=== PATIENT | female | born 1985 | race Caucasian/White ===

== ENCOUNTER 2019-10-26 18:09 | Emergency (ER) | payer MEDICAID ==
[~2019-10-26] VITALS: Ht 152.4 cm; Wt 65.0 kg
[2019-10-26 21:08] VITALS: BP 128/83
== END 2019-10-26 21:04 | disposition home or self-care (01) ==
LOC: ER 18:10
DX: S63.693A Other sprain of left middle finger, initial encounter (principal); X58.XXXA Exposure to other specified factors, initial encounter; Y93.89 Activity, other specified; Y92.89 Other specified places as the place of occurrence of the external cause; Y99.8 Other external cause status
CPT/HCPCS: 73140; 99283

== ENCOUNTER 2020-07-05 10:32 | Inpatient (IN) | payer MEDICAID ==
[~2020-07-05] VITALS: Ht 152.4 cm; Wt 65.0 kg
[2020-07-05] MEDS ORDERED: iohexol 350MG/ML 100ml bottle IV ONE (11:05)
[2020-07-05] MEDS ORDERED: SUMAtriptan succ. 6 MG/0.5ml vial SQ ONE (12:30)
[2020-07-05] MEDS ORDERED: diphenhydrAMINE 50 mg/ml inj IV ONE ×2 (12:30→23:10)
[2020-07-05] MEDS ORDERED: proCHLORperazine 10 MG/2 ml inj IV PRN (12:30)
[2020-07-05] MEDS ORDERED: ketorolac trometh. 30mg/ml inj. IV ONE (12:30)
[2020-07-05] MEDS ORDERED: morphine 4 MG/ML inj SYRINge IV ONE (13:10)
--- NOTE | 2020-07-05 13:23 | NUR ---
mri form faxed to [facility]ri
[2020-07-05 13:46] LABS: CLARITY,URINE SLIGHTLY CLOUDY (Clear); COLOR,URINE STRAW (Yellow); GLUCOSE, URINE NEGATIVE (Neg); KETONES,URINE NEGATIVE (Neg); LEUKOCYTE ESTERASE ,URINE NEGATIVE (Neg); NITRITES, URINE NEGATIVE (Neg); OCCULT BLOOD,URINE SMALL (Neg); PH,URINE 7.5 (4.8-8.0); PROTEIN,URINE NEGATIVE (Neg); UROBILINOGEN,URINE 0.2 E.U/dL (0.2-1.0)
[2020-07-05 13:47] LABS: UA COLLECTION TYPE CLN CATCH MIDSTREAM
[2020-07-05 13:54] LABS: URINE AMPHETAMINE SCREEN NEGATIVE (Neg); URINE BARBITUATE SCREEN NEGATIVE (Neg); URINE BENZODIAZEPINES SCREEN NEGATIVE (Neg); URINE CANNABINOID SCREEN NEGATIVE (Neg); URINE COCAINE SCREEN NEGATIVE (Neg); URINE METHADONE SCREEN NEGATIVE (Neg); URINE OPIATE SCREEN NEGATIVE (Neg); URINE PHENCYCLIDINE SCREEN NEGATIVE (Neg)
[2020-07-05 13:56] LABS: SQUAMOUS EPITHELIAL CELL,UR FEW /LPF (FEW)
[2020-07-05 13:57] LABS: BACTERIA,URINE FEW /HPF (Neg); RBC,URINE 0-2 /HPF (0-2); WBC,URINE 0-4 /HPF (0-4)
[2020-07-05 14:40] LABS: BASOPHILS % (AUTO) 0.6 % (0-1); EOSINOPHILS # (AUTO) 0.1 X10'3 (0-0.9); EOSINOPHILS % (AUTO) 2.2 % (0-6); HEMATOCRIT 41.7 % (35.0-45.0); LYMPHOCYTES # (AUTO) 1.6 X10'3 (1.1-4.8); LYMPHOCYTES % (AUTO) 28.9 % (21-51); MEAN CORPUSCULAR HEMOGLOBIN 30.2 PG (27.0-31.0); MEAN CORPUSCULAR HGB CONC 33.7 g/dL (33.0-36.5); MEAN CORPUSCULAR VOLUME 89.7 FL (78-98); MEAN PLATELET VOLUME 7.3 FL (7.4-10.4); MONOCYTES # (AUTO) 0.3 X10'3 (0-0.9); MONOCYTES % (AUTO) 5.4 % (2-12); NEUTROPHILS # (AUTO) 3.6 X10'3 (1.8-7.7); NEUTROPHILS % (AUTO) 62.9 % (42-75); PLATELET COUNT 336 X10'3 (140-440); RED BLOOD COUNT 4.65 X10'6 (4.20-5.60); RED CELL DISTRIBUTION WIDTH 13.3 % (11.5-14.5); WHITE BLOOD COUNT 5.7 X10'3 (4.5-11.0)
[2020-07-05 14:48] LABS: PARTIAL THROMBOPLASTIN TIME 30 SECONDS (22-32)
[2020-07-05 14:50] LABS: ALANINE AMINOTRANSFERASE 65 U/L (12-78); ALKALINE PHOSPHATASE 114 IU/L (46-116); ANION GAP 7 (8-16); ASPARTATE AMINO TRANSFERASE 28 U/L (10-37); BILIRUBIN,TOTAL 0.4 MG/DL (0.1-1.0); BLOOD UREA NITROGEN 8 MG/DL (7-18); BUN/CREATININE RATIO 11.1 (6.6-38.0); CALCIUM 8.7 MG/DL (8.5-10.1); CHLORIDE 103 MMOL/L (99-107); CREATININE 0.72 MG/DL (0.40-0.90); GLUCOSE 87 MG/DL (70-104); POTASSIUM 3.9 MMOL/L (3.5-5.1); SODIUM 136 MMOL/L (135-145); TOTAL CARBON DIOXIDE 25.6 MMOL/L (24-32); eGFR > 90 ML/MIN
[2020-07-05] MEDS ORDERED: NO HOME MEDS (15:34)
[2020-07-05] MEDS ORDERED: magnesium Cl slow-release 64mg tablet PO PRN (15:55)
[2020-07-05] MEDS ORDERED: magnesium 4gm in 100ml NS 100 ML IV PRN (15:55)
[2020-07-05] MEDS ORDERED: HYDROcodone/acetaminophen 10/325mg tab PO PRN (15:55)
[2020-07-05] MEDS ORDERED: magnesium 2GM in 50ml NS 50 ML IV PRN (15:55)
[2020-07-05] MEDS ORDERED: mag hydrox/Alum hydrox/simeth 30ml oral suspension PO PRN (15:55)
[2020-07-05] MEDS ORDERED: bisacodyl 10mg suppository rectal RC PRN (15:55)
[2020-07-05] MEDS ORDERED: morphine 2 MG/ML inj. syringe IV PRN ×2 (15:55)
[2020-07-05] MEDS ORDERED: diphenhydrAMINE 25mg capsule PO PRN (15:55)
[2020-07-05] MEDS ORDERED: potassium Cl 20 mEq SR tablet PO PRN ×2 (15:55)
[2020-07-05] MEDS ORDERED: magnesium hydroxide 30ml (MOM) UD suspension PO PRN (15:55)
[2020-07-05] MEDS ORDERED: acetaminophen 325mg tablet PO PRN ×2 (15:55)
[2020-07-05] MEDS ORDERED: potassium CL 10mEq/100ml bag 100 ML IV PRN ×2 (15:55)
[2020-07-05] MEDS ORDERED: HYDROcodone/acetaminophen 5mg/325mg tablet PO PRN (15:55)
[2020-07-05] MEDS ORDERED: ondansetron/PF 4mg/2ml inj IV PRN (15:55)
[2020-07-05] MEDS ORDERED: acetaminophen 650mg rectal suppository RC PRN (15:55)
[2020-07-05] MEDS ORDERED: atorvastatin 10mg tablet PO SCH (15:55)
[2020-07-05] MEDS ORDERED: aspirin 81mg tab.chew PO ONE (16:10)
[2020-07-05] MEDS ORDERED: GADOTERATE MEGLUMINE 7.5 MMOL/15 ML VIAL IV ONE (16:46)
[2020-07-05 16:56] LABS: HCG SERUM QL NEGATIVE
[2020-07-05 17:02] LABS: CHOL/HDL RATIO 4.7 (0.00-4.99); CHOLESTEROL 200 MG/DL (0-200); HDL CHOLESTEROL 43 MG/DL (35-60); LDL CHOLESTEROL 113 MG/DL (50-100); TRIGLYCERIDES 198 MG/DL (20-135)
[2020-07-05] MEDS: normal saline 1000ml 1,000 ML IV SCH (17:02)
[2020-07-05] MEDS: atorvastatin 20mg tablet PO SCH (17:03)
[2020-07-05 17:40] LABS: CLARITY,URINE CLEAR (Clear); COLOR,URINE YELLOW (Yellow); GLUCOSE, URINE NEGATIVE (Neg); KETONES,URINE 15 mg/dl (Neg); LEUKOCYTE ESTERASE ,URINE NEGATIVE (Neg); NITRITES, URINE NEGATIVE (Neg); OCCULT BLOOD,URINE SMALL (Neg); PROTEIN,URINE NEGATIVE (Neg); UROBILINOGEN,URINE 0.2 E.U/dL (0.2-1.0)
[2020-07-05 17:45] LABS: UA COLLECTION TYPE CLN CATCH MIDSTREAM
[2020-07-05 17:48] LABS: HEMOGLOBIN A1C 5.7 % (4.5-6.2)
[2020-07-05 18:06] LABS: SQUAMOUS EPITHELIAL CELL,UR FEW /LPF (FEW)
[2020-07-05 18:07] LABS: BACTERIA,URINE FEW /HPF (Neg); RBC,URINE 0-2 /HPF (0-2); WBC,URINE 0-4 /HPF (0-4)
[2020-07-05] MEDS: K and/or MAG REPLACEMENT MC SCH (20:00)
[2020-07-05 20:15] VITALS: BP 118/81
[2020-07-05] MEDS: heparin, porcine 5000 units/ml vial SQ SCH (21:02)
[2020-07-05 22:00] VITALS: BP 127/85
[2020-07-05] MEDS ORDERED: LORazepam 2 mg/ml vial IV PRN (23:10)
--- NOTE | 2020-07-05 23:10 | NUR ---
MESSAGE: [id number] AMY SEN 35 HERE FOR POS STROKE/MASS IS ANXIOUS AND REQUESTING SLEEPING AID. THANK YOU. FROM [id number] FREDDIE
[2020-07-06 02:00] VITALS: BP 109/70
[2020-07-06] MEDS: normal saline 1000ml 1,000 ML IV SCH ×2 (04:36→11:55)
[2020-07-06 06:00] VITALS: BP 106/68
[2020-07-06 06:36] LABS: BASOPHILS % (AUTO) 0.6 % (0-1); EOSINOPHILS # (AUTO) 0.2 X10'3 (0-0.9); EOSINOPHILS % (AUTO) 3.1 % (0-6); HEMATOCRIT 38.8 % (35.0-45.0); HEMOGLOBIN 12.7 g/dl (12.0-16.0); LYMPHOCYTES # (AUTO) 2.6 X10'3 (1.1-4.8); LYMPHOCYTES % (AUTO) 42.1 % (21-51); MEAN CORPUSCULAR HEMOGLOBIN 29.5 PG (27.0-31.0); MEAN CORPUSCULAR HGB CONC 32.8 g/dL (33.0-36.5); MEAN CORPUSCULAR VOLUME 89.9 FL (78-98); MEAN PLATELET VOLUME 7.3 FL (7.4-10.4); MONOCYTES # (AUTO) 0.5 X10'3 (0-0.9); MONOCYTES % (AUTO) 7.6 % (2-12); NEUTROPHILS # (AUTO) 2.9 X10'3 (1.8-7.7); NEUTROPHILS % (AUTO) 46.6 % (42-75); PLATELET COUNT 323 X10'3 (140-440); RED BLOOD COUNT 4.31 X10'6 (4.20-5.60); RED CELL DISTRIBUTION WIDTH 13.5 % (11.5-14.5); WHITE BLOOD COUNT 6.1 X10'3 (4.5-11.0)
--- NOTE | 2020-07-06 06:41 | NUR ---
Problems reprioritized. Patient report given, questions answered & plan of care reviewed with SHAR JEAN.
--- NOTE | 2020-07-06 06:43 | NUR ---
Patient in room ORTHO 4008. I have received report from Marisela and had the opportunity to ask questions and assume patient care.
[2020-07-06 06:58] LABS: ALANINE AMINOTRANSFERASE 58 U/L (12-78); ALBUMIN 3.4 G/DL (3.4-5.0); ALKALINE PHOSPHATASE 98 IU/L (46-116); ANION GAP 5 (8-16); ASPARTATE AMINO TRANSFERASE 30 U/L (10-37); BILIRUBIN,TOTAL 0.3 MG/DL (0.1-1.0); BLOOD UREA NITROGEN 14 MG/DL (7-18); BUN/CREATININE RATIO 21.2 (6.6-38.0); CALCIUM 8.4 MG/DL (8.5-10.1); CHLORIDE 107 MMOL/L (99-107); CHOL/HDL RATIO 4.7 (0.00-4.99); CHOLESTEROL 166 MG/DL (0-200); CREATININE 0.66 MG/DL (0.40-0.90); GLUCOSE 86 MG/DL (70-104); HDL CHOLESTEROL 35 MG/DL (35-60); LDL CHOLESTEROL 97 MG/DL (50-100); MAGNESIUM 2.2 MG/DL (1.5-2.4); PHOSPHORUS 4.6 MG/DL (2.3-4.5); POTASSIUM 3.8 MMOL/L (3.5-5.1); SODIUM 140 MMOL/L (135-145); TOTAL CARBON DIOXIDE 27.8 MMOL/L (24-32); TOTAL PROTEIN 6.9 G/DL (6.4-8.2); TRIGLYCERIDES 201 MG/DL (20-135); eGFR > 90 ML/MIN
[2020-07-06] MEDS: K and/or MAG REPLACEMENT MC SCH (07:16)
[2020-07-06] MEDS ORDERED: aspirin 81mg tablet.DR PO SCH (08:00)
[2020-07-06] MEDS: atorvastatin 20mg tablet PO SCH (08:21)
[2020-07-06] MEDS: heparin, porcine 5000 units/ml vial SQ SCH (08:21)
[2020-07-06 10:00] VITALS: BP 101/70
--- NOTE | 2020-07-06 13:01 | NUR ---
Jean [id number] Re: Penny Christianson Tele consult report and Carotids are complete.
[2020-07-06 14:03] VITALS: BP 112/74
--- NOTE | 2020-07-06 14:14 | NUR ---
PT reports pt questions regarding heart healthy diet while RD on the floor. Pt admit w/ r/o CVA and possible R thalamus mass per EMR. TG 201 on admit. Pt seen by RD for written/verbal heart healthy diet ed w/ RD contact information provided. Addendum: 07/06/20 at [address] Amended: Links added.
--- NOTE | 2020-07-06 15:34 | NUR ---
Jean [id number] Re: Penny Christianson Dr. from [facility] dictated MRI results but they got lost in transfer. His # [phone] to confirm results.
--- NOTE | 2020-07-06 17:07 | NUR ---
Jean [id number] Re: Penny Christianson MRI report is now in [facility].
[2020-07-06] MEDS ORDERED: RIZA10TA27 PO (17:11)
--- NOTE | 2020-07-06 17:48 | NUR ---
Safe DC. All personal items with patient. new prescriptions called into preferred pharmacy. Left hospital in personal vehicle with family.
== END 2020-07-06 17:40 | disposition home or self-care (01) | DRG 54 ==
LOC: ER 10:33 → ED HOLD 15:55 → ORTHO 4S 20:15
PROVIDERS: ADMIT Family Medicine; ATTEND Family Medicine
PROC: BW38YZZ Magnetic Resonance Imaging (MRI) of Head using Other Contrast (ICD-10-PCS; principal; 2020-07-06)
DX: G43.109 Migraine with aura, not intractable, without status migrainosus (principal); G93.0 Cerebral cysts; Z82.3 Family history of stroke; Z82.49 Family history of ischemic heart disease and other diseases of the circulatory system
CPT/HCPCS: 36415; 70496; 70544; 70551; 70552; 80053; 80061; 80305; 81001; 82948; 83036; 83735; 84100; 84703; 85025; 85610; 85651; 85730; 87081; 92508; 92616; 93306; 93880; 96372; 96374; 96375; 97161; 99285; A9575; G0378; J1200; J1644; J1885; J2270; J3030; J7030; Q9967

== ENCOUNTER 2020-10-15 17:07 | Emergency (ER) | payer MEDICAID ==
[~2020-10-15] VITALS: Ht 152.4 cm; Wt 67.7 kg
[~2020-10-15 17:07] MED LIST: RIZA10TA27 PO
[2020-10-15 20:04] LABS: BASOPHILS % (AUTO) 0.6 % (0-1); EOSINOPHILS # (AUTO) 0.3 X10'3 (0-0.9); EOSINOPHILS % (AUTO) 3.3 % (0-6); HEMATOCRIT 38.4 % (35.0-45.0); LYMPHOCYTES # (AUTO) 2.3 X10'3 (1.1-4.8); LYMPHOCYTES % (AUTO) 29.5 % (21-51); MEAN CORPUSCULAR HEMOGLOBIN 30.1 PG (27.0-31.0); MEAN CORPUSCULAR HGB CONC 33.7 g/dL (33.0-36.5); MEAN CORPUSCULAR VOLUME 89.2 FL (78-98); MEAN PLATELET VOLUME 7.3 FL (7.4-10.4); MONOCYTES # (AUTO) 0.6 X10'3 (0-0.9); MONOCYTES % (AUTO) 7.2 % (2-12); NEUTROPHILS # (AUTO) 4.7 X10'3 (1.8-7.7); NEUTROPHILS % (AUTO) 59.4 % (42-75); PLATELET COUNT 356 X10'3 (140-440); RED BLOOD COUNT 4.31 X10'6 (4.20-5.60); RED CELL DISTRIBUTION WIDTH 13.7 % (11.5-14.5); WHITE BLOOD COUNT 7.9 X10'3 (4.5-11.0)
[2020-10-15 20:13] LABS: URINE HCG NEGATIVE (NEG)
[2020-10-15 20:15] LABS: ALANINE AMINOTRANSFERASE 87 U/L (12-78); ALBUMIN 3.8 G/DL (3.4-5.0); ALKALINE PHOSPHATASE 122 IU/L (46-116); ANION GAP 5 (8-16); ASPARTATE AMINO TRANSFERASE 34 U/L (10-37); BILIRUBIN,TOTAL 0.2 MG/DL (0.1-1.0); BLOOD UREA NITROGEN 10 MG/DL (7-18); BUN/CREATININE RATIO 14.1 (6.6-38.0); CALCIUM 9.5 MG/DL (8.5-10.1); CHLORIDE 108 MMOL/L (99-107); CREATININE 0.71 MG/DL (0.40-0.90); GLUCOSE 110 MG/DL (70-104); LIPASE 144 U/L (73-393); POTASSIUM 3.7 MMOL/L (3.5-5.1); SODIUM 141 MMOL/L (135-145); TOTAL CARBON DIOXIDE 27.7 MMOL/L (24-32); TOTAL PROTEIN 7.6 G/DL (6.4-8.2); eGFR > 90 ML/MIN
[2020-10-15] MEDS ORDERED: acetaminophen 325mg tablet PO ONE (20:15)
[2020-10-15 20:21] LABS: CLARITY,URINE SLIGHTLY CLOUDY (Clear); COLOR,URINE YELLOW (Yellow); GLUCOSE, URINE NEGATIVE (Neg); KETONES,URINE NEGATIVE (Neg); LEUKOCYTE ESTERASE ,URINE NEGATIVE (Neg); NITRITES, URINE NEGATIVE (Neg); OCCULT BLOOD,URINE NEGATIVE (Neg); PROTEIN,URINE NEGATIVE (Neg); UROBILINOGEN,URINE 0.2 E.U/dL (0.2-1.0)
[2020-10-15 20:51] LABS: UA COLLECTION TYPE CLN CATCH MIDSTREAM
[2020-10-15 20:53] LABS: AMORPHOUS PHOSPHATES 2+; BACTERIA,URINE FEW /HPF (Neg); MUCUS STRANDS MODERATE /LPF (Neg); RBC,URINE 0-2 /HPF (0-2); SQUAMOUS EPITHELIAL CELL,UR MODERATE /LPF (FEW); WBC,URINE 0-4 /HPF (0-4)
[2020-10-15] MEDS ORDERED: PANT20TA18 PO (21:08)
[2020-10-15] MEDS ORDERED: BISA-78 PO (21:08)
[2020-10-15] MEDS ORDERED: ACET-812 PO (21:08)
[2020-10-15 21:14] VITALS: BP 122/86
== END 2020-10-15 21:15 | disposition home or self-care (01) ==
LOC: ER 17:08
DX: R10.12 Left upper quadrant pain (principal); K59.00 Constipation, unspecified; R50.9 Fever, unspecified; G43.909 Migraine, unspecified, not intractable, without status migrainosus; Z79.899 Other long term (current) drug therapy
CPT/HCPCS: 36415; 80053; 81001; 81025; 83690; 85025; 99283

== ENCOUNTER 2021-01-19 13:53 | Emergency (ER) | payer MEDICAID ==
[~2021-01-19] VITALS: Ht 152.4 cm; Wt 63.6 kg
[~2021-01-19 13:53] MED LIST changes: +ACET-812 PO; +BISA-78 PO; +PANT20TA18 PO
[2021-01-19 14:31] LABS: BASOPHILS % (AUTO) 0.5 % (0-1); EOSINOPHILS # (AUTO) 0.2 X10'3 (0-0.9); EOSINOPHILS % (AUTO) 2.5 % (0-6); HEMATOCRIT 41.9 % (35.0-45.0); HEMOGLOBIN 13.8 g/dl (12.0-16.0); LYMPHOCYTES # (AUTO) 1.8 X10'3 (1.1-4.8); LYMPHOCYTES % (AUTO) 24.4 % (21-51); MEAN CORPUSCULAR HEMOGLOBIN 29.3 PG (27.0-31.0); MEAN CORPUSCULAR VOLUME 88.8 FL (78-98); MONOCYTES # (AUTO) 0.5 X10'3 (0-0.9); MONOCYTES % (AUTO) 6.3 % (2-12); NEUTROPHILS % (AUTO) 66.3 % (42-75); PLATELET COUNT 344 X10'3 (140-440); RED BLOOD COUNT 4.72 X10'6 (4.20-5.60); RED CELL DISTRIBUTION WIDTH 13.3 % (11.5-14.5); WHITE BLOOD COUNT 7.5 X10'3 (4.5-11.0)
[2021-01-19 14:46] LABS: ALANINE AMINOTRANSFERASE 125 U/L (12-78); ALBUMIN 4.3 G/DL (3.4-5.0); ALBUMIN/GLOBULIN RATIO 1.2 (1.1-1.5); ALKALINE PHOSPHATASE 142 IU/L (46-116); ANION GAP 7 (8-16); ASPARTATE AMINO TRANSFERASE 46 U/L (10-37); BILIRUBIN,TOTAL 0.3 MG/DL (0.1-1.0); BLOOD UREA NITROGEN 13 MG/DL (7-18); BUN/CREATININE RATIO 18.3 (6.6-38.0); CALCIUM 9.2 MG/DL (8.5-10.1); CHLORIDE 104 MMOL/L (99-107); CREATININE 0.71 MG/DL (0.40-0.90); GLUCOSE 100 MG/DL (70-104); POTASSIUM 4.2 MMOL/L (3.5-5.1); SODIUM 138 MMOL/L (135-145); TOTAL CARBON DIOXIDE 26.8 MMOL/L (24-32); TOTAL PROTEIN 7.9 G/DL (6.4-8.2); eGFR > 90 ML/MIN
[2021-01-19 14:52] LABS: HCG SERUM QL NEGATIVE
[2021-01-19 18:16] LABS: CLARITY,URINE SLIGHTLY CLOUDY (Clear); COLOR,URINE STRAW (Yellow); GLUCOSE, URINE NEGATIVE (Neg); KETONES,URINE NEGATIVE (Neg); LEUKOCYTE ESTERASE ,URINE NEGATIVE (Neg); NITRITES, URINE NEGATIVE (Neg); OCCULT BLOOD,URINE NEGATIVE (Neg); PROTEIN,URINE NEGATIVE (Neg); URINE HCG NEGATIVE (NEG); UROBILINOGEN,URINE 0.2 E.U/dL (0.2-1.0)
[2021-01-19 18:18] LABS: UA COLLECTION TYPE CLN CATCH MIDSTREAM
[2021-01-19 18:22] LABS: MUCUS STRANDS FEW /LPF (Neg); SQUAMOUS EPITHELIAL CELL,UR MANY /LPF (FEW)
[2021-01-19 18:23] LABS: BACTERIA,URINE FEW /HPF (Neg); RBC,URINE 0-2 /HPF (0-2); WBC,URINE 0-4 /HPF (0-4)
[2021-01-19 18:33] VITALS: BP 126/89
[2021-01-20] MEDS ORDERED: GADOTERATE MEGLUMINE 7.5 MMOL/15 ML VIAL IV ONE (08:51)
== END 2021-01-19 18:37 | disposition home or self-care (01) ==
LOC: ER 13:54
DX: R20.0 Anesthesia of skin (principal); G43.909 Migraine, unspecified, not intractable, without status migrainosus; Z79.899 Other long term (current) drug therapy
CPT/HCPCS: 36415; 70553; 80053; 81001; 81025; 84703; 85025; 99285; A9575

== ENCOUNTER 2021-09-12 18:11 | Emergency (ER) | payer MEDICAID ==
[~2021-09-12] VITALS: Ht 152.4 cm; Wt 72.6 kg
[2021-09-12 19:01] VITALS: BP 150/89
[2021-09-12 19:43] LABS: BASOPHILS % (AUTO) 0.5 % (0-1); EOSINOPHILS # (AUTO) 0.2 X10'3 (0-0.9); EOSINOPHILS % (AUTO) 2.5 % (0-6); HEMATOCRIT 39.3 % (35.0-45.0); HEMOGLOBIN 13.4 g/dl (12.0-16.0); LYMPHOCYTES # (AUTO) 2.3 X10'3 (1.1-4.8); LYMPHOCYTES % (AUTO) 29.3 % (21-51); MEAN CORPUSCULAR HEMOGLOBIN 29.8 PG (27.0-31.0); MEAN CORPUSCULAR VOLUME 87.6 FL (78-98); MEAN PLATELET VOLUME 7.1 FL (7.4-10.4); MONOCYTES # (AUTO) 0.6 X10'3 (0-0.9); MONOCYTES % (AUTO) 7.5 % (2-12); NEUTROPHILS # (AUTO) 4.8 X10'3 (1.8-7.7); NEUTROPHILS % (AUTO) 60.2 % (42-75); PLATELET COUNT 375 X10'3 (140-440); RED BLOOD COUNT 4.49 X10'6 (4.20-5.60); RED CELL DISTRIBUTION WIDTH 13.6 % (11.5-14.5)
[2021-09-12 19:56] LABS: ALANINE AMINOTRANSFERASE 37 U/L (12-78); ALBUMIN 3.7 G/DL (3.4-5.0); ALBUMIN/GLOBULIN RATIO 0.9 (1.1-1.5); ALKALINE PHOSPHATASE 126 IU/L (46-116); ANION GAP 10 (8-16); ASPARTATE AMINO TRANSFERASE 16 U/L (10-37); BILIRUBIN,TOTAL 0.2 MG/DL (0.1-1.0); BLOOD UREA NITROGEN 10 MG/DL (7-18); BUN/CREATININE RATIO 13.5 (6.6-38.0); CALCIUM 8.7 MG/DL (8.5-10.1); CHLORIDE 106 MMOL/L (99-107); CREATININE 0.74 MG/DL (0.40-0.90); GLUCOSE 93 MG/DL (70-104); POTASSIUM 3.8 MMOL/L (3.5-5.1); SODIUM 143 MMOL/L (135-145); TOTAL CARBON DIOXIDE 27.5 MMOL/L (24-32); TOTAL PROTEIN 7.8 G/DL (6.4-8.2); eGFR 90 ML/MIN
[2021-09-12 20:02] LABS: UA COLLECTION TYPE CLN CATCH MIDSTREAM
[2021-09-12 20:03] LABS: CLARITY,URINE CLEAR (Clear); COLOR,URINE YELLOW (Yellow); GLUCOSE, URINE NEGATIVE (Neg); KETONES,URINE NEGATIVE (Neg); LEUKOCYTE ESTERASE ,URINE NEGATIVE (Neg); NITRITES, URINE NEGATIVE (Neg); OCCULT BLOOD,URINE NEGATIVE (Neg); PROTEIN,URINE NEGATIVE (Neg); UROBILINOGEN,URINE 0.2 E.U/dL (0.2-1.0)
== END 2021-09-12 21:00 | disposition home or self-care (01) ==
LOC: ER 18:12
DX: R10.11 Right upper quadrant pain (principal); G43.909 Migraine, unspecified, not intractable, without status migrainosus; Z79.899 Other long term (current) drug therapy
CPT/HCPCS: 36415; 76700; 80053; 81003; 85025; 99284

== ENCOUNTER 2022-05-17 00:39 | Emergency (ER) | payer MEDICAID ==
[~2022-05-17] VITALS: Ht 152.4 cm; Wt 67.5 kg
[2022-05-17 00:45] VITALS: BP 137/89
[2022-05-17] MEDS ORDERED: DICY10CA88 PO (17:46)
== END 2022-05-17 05:37 | disposition left against medical advice (07) ==
LOC: ER 00:39
DX: R10.11 Right upper quadrant pain (principal); Z53.21 Procedure and treatment not carried out due to patient leaving prior to being seen by health care provider

== ENCOUNTER 2022-05-17 11:37 | Emergency (ER) | payer MEDICAID ==
[~2022-05-17] VITALS: Ht 152.4 cm; Wt 68.2 kg
[2022-05-17 12:31] LABS: BASOPHILS % (AUTO) 0.4 % (0-1); EOSINOPHILS # (AUTO) 0.3 X10'3 (0-0.9); EOSINOPHILS % (AUTO) 3.8 % (0-6); HEMATOCRIT 40.7 % (35.0-45.0); HEMOGLOBIN 13.5 g/dl (12.0-16.0); MEAN CORPUSCULAR HGB CONC 33.1 g/dL (33.0-36.5); MEAN CORPUSCULAR VOLUME 87.6 FL (78-98); MEAN PLATELET VOLUME 7.5 FL (7.4-10.4); MONOCYTES # (AUTO) 0.5 X10'3 (0-0.9); MONOCYTES % (AUTO) 7.2 % (2-12); NEUTROPHILS # (AUTO) 4.2 X10'3 (1.8-7.7); NEUTROPHILS % (AUTO) 60.6 % (42-75); PLATELET COUNT 299 X10'3 (140-440); RED BLOOD COUNT 4.64 X10'6 (4.20-5.60); RED CELL DISTRIBUTION WIDTH 14.1 % (11.5-14.5)
[2022-05-17 12:43] LABS: ALANINE AMINOTRANSFERASE 69 U/L (12-78); ALBUMIN/GLOBULIN RATIO 1.1 (1.1-1.5); ALKALINE PHOSPHATASE 110 IU/L (46-116); ANION GAP 5 (8-16); ASPARTATE AMINO TRANSFERASE 33 U/L (10-37); BILIRUBIN,TOTAL 0.5 MG/DL (0.1-1.0); BLOOD UREA NITROGEN 10 MG/DL (7-18); CALCIUM 8.8 MG/DL (8.5-10.1); CHLORIDE 105 MMOL/L (99-107); CREATININE 0.77 MG/DL (0.40-0.90); GLUCOSE 89 MG/DL (70-104); LIPASE 99 U/L (73-393); POTASSIUM 4.1 MMOL/L (3.5-5.1); SODIUM 137 MMOL/L (135-145); TOTAL CARBON DIOXIDE 27.2 MMOL/L (24-32); TOTAL PROTEIN 7.7 G/DL (6.4-8.2); eGFR 85 ML/MIN
[2022-05-17 12:56] LABS: CLARITY,URINE CLEAR (Clear); COLOR,URINE YELLOW (Yellow); GLUCOSE, URINE NEGATIVE (Neg); KETONES,URINE 15 mg/dl (Neg); LEUKOCYTE ESTERASE ,URINE NEGATIVE (Neg); NITRITES, URINE NEGATIVE (Neg); OCCULT BLOOD,URINE NEGATIVE (Neg); PROTEIN,URINE NEGATIVE (Neg); UROBILINOGEN,URINE 0.2 E.U/dL (0.2-1.0)
[2022-05-17 12:57] LABS: UA COLLECTION TYPE CLN CATCH MIDSTREAM; URINE HCG NEGATIVE (NEG)
[2022-05-17 17:19] VITALS: BP 124/86
[2022-05-17] MEDS ORDERED: dicyclomine 10 MG capsule PO ONE (17:45)
[2022-05-17] MEDS ORDERED: DICY10CA88 PO (17:46)
== END 2022-05-17 18:18 | disposition home or self-care (01) ==
LOC: ER 11:37
DX: R10.11 Right upper quadrant pain (principal); R11.0 Nausea; G43.909 Migraine, unspecified, not intractable, without status migrainosus; Z79.899 Other long term (current) drug therapy
CPT/HCPCS: 36415; 74176; 76700; 80053; 81003; 81025; 83690; 85025; 99285

== ENCOUNTER 2023-04-19 08:15 | Emergency (ER) | payer MEDICAID ==
[~2023-04-19] VITALS: Ht 152.4 cm; Wt 67.3 kg
[~2023-04-19 08:15] MED LIST changes: +DICY10CA88 PO; +RIZA-5 PO; -RIZA10TA27 PO
[2023-04-19 08:28] VITALS: BP 131/95
[2023-04-19 09:01] LABS: URINE HCG NEGATIVE (NEG)
[2023-04-19 09:08] LABS: CLARITY,URINE CLEAR (Clear); COLOR,URINE YELLOW (Yellow); GLUCOSE, URINE NEGATIVE (Neg); KETONES,URINE NEGATIVE (Neg); LEUKOCYTE ESTERASE ,URINE NEGATIVE (Neg); NITRITES, URINE NEGATIVE (Neg); OCCULT BLOOD,URINE NEGATIVE (Neg); PROTEIN,URINE NEGATIVE (Neg); UROBILINOGEN,URINE 0.2 E.U/dL (0.2-1.0)
[2023-04-19 09:09] LABS: UA COLLECTION TYPE CLN CATCH MIDSTREAM
[2023-04-19 09:19] LABS: BASOPHILS % (AUTO) 0.6 % (0-1); EOSINOPHILS # (AUTO) 0.2 X10'3 (0-0.9); EOSINOPHILS % (AUTO) 2.3 % (0-6); HEMATOCRIT 40.3 % (35.0-45.0); HEMOGLOBIN 13.7 g/dl (12.0-16.0); LYMPHOCYTES # (AUTO) 1.9 X10'3 (1.1-4.8); LYMPHOCYTES % (AUTO) 29.9 % (21-51); MEAN CORPUSCULAR HGB CONC 33.9 g/dL (33.0-36.5); MEAN CORPUSCULAR VOLUME 88.5 FL (78-98); MEAN PLATELET VOLUME 7.2 FL (7.4-10.4); MONOCYTES # (AUTO) 0.4 X10'3 (0-0.9); MONOCYTES % (AUTO) 6.9 % (2-12); NEUTROPHILS # (AUTO) 3.9 X10'3 (1.8-7.7); NEUTROPHILS % (AUTO) 60.3 % (42-75); PLATELET COUNT 332 X10'3 (140-440); RED BLOOD COUNT 4.55 X10'6 (4.20-5.60); RED CELL DISTRIBUTION WIDTH 13.7 % (11.5-14.5); WHITE BLOOD COUNT 6.5 X10'3 (4.5-11.0)
[2023-04-19 09:33] LABS: ALANINE AMINOTRANSFERASE 75 U/L (12-78); ALBUMIN/GLOBULIN RATIO 1.1 (1.1-1.5); ALKALINE PHOSPHATASE 119 IU/L (46-116); ANION GAP 8 (8-16); ASPARTATE AMINO TRANSFERASE 35 U/L (10-37); BILIRUBIN,TOTAL 0.5 MG/DL (0.1-1.0); BLOOD UREA NITROGEN 8 MG/DL (7-18); BUN/CREATININE RATIO 14.3 (10.0-20.0); CHLORIDE 105 MMOL/L (99-107); CREATININE 0.56 MG/DL (0.40-0.90); GLUCOSE 95 MG/DL (70-104); LIPASE 87 U/L (73-393); POTASSIUM 3.9 MMOL/L (3.5-5.1); SODIUM 138 MMOL/L (135-145); TOTAL CARBON DIOXIDE 25.5 MMOL/L (24-32); TOTAL PROTEIN 7.6 G/DL (6.4-8.2); eGFR > 90 ML/MIN
[2023-04-19] MEDS ORDERED: ketorolac trometh inj. 60 MG/2 ML VIAL IM ONE (10:50)
== END 2023-04-19 11:10 | disposition home or self-care (01) ==
LOC: ER 08:17
DX: R10.11 Right upper quadrant pain (principal); G43.909 Migraine, unspecified, not intractable, without status migrainosus
CPT/HCPCS: 36415; 76700; 80053; 81003; 81025; 83690; 85025; 96372; 99285; J1885